=== PATIENT | female | born 1945 | race Caucasian/White ===

== ENCOUNTER → 2019-02-16 15:46 | Outpatient (CLI) | payer MEDICARE, OTHER, SELFPAY ==
--- NOTE | 2019-02-16 15:52 | CT_ITS ---
STUDY: CT ABDOMEN AND PELVIS WITHOUT CONTRAST REASON FOR EXAM: Female, 73 years old. Lower back pain. Left flank pain. History of prior lumbar surgery, appendectomy hysterectomy and cholecystectomy. RADIATION DOSAGE (If Supplied By Facility): CTDIvol = ( 19.14 ) mGy, DLP = ( 937.05 ) mGycm TECHNIQUE: Transaxial images were obtained from the dome of the diaphragm to the symphysis pubis without oral contrast, and without intravenous contrast. Sagittal and coronal images were reconstructed. Individualized dose optimization techniques were used for this CT. COMPARISON: None. FINDINGS: The visualized lung bases are unremarkable. The visualized portions of the heart are within normal limits. The liver is normal in size, contour and density. There is a vague hypodensity in segment 3 of the liver measuring 4 x 5 x 4 cm thought represent cysts. The liver is otherwise unremarkable. There are surgical clips in the gallbladder fossa consistent with a prior cholecystectomy. Normal spleen. Normal pancreas. Normal bilateral adrenal glands. Normal right kidney. Normal left kidney. Normal visualized stomach. Normal small intestine. Normal colon. There is non-visualization of the appendix. There are minimal atherosclerotic changes in the aorta without aneurysm. Normal inferior vena cava. Normal retroperitoneum. Normal urinary bladder. There is posthysterectomy. Normal vaginal cuff. Surgical clips along the left pelvic sidewall. No lymphadenopathy. No free air or free fluid is seen within the peritoneal cavity. Umbilical hernia of omental fat. Abdominal wall is otherwise unremarkable. There are diffuse degenerative changes of the visualized lumbar spine. There is surgical fusion at L4-[address]/Abdomen/Pelvis without Cont IMPRESSION: 1. No evidence of renal, ureteral or urinary bladder abnormality. 2. Small hepatic cysts. 3. No evidence of acute intra-abdominal process. 4. Surgical changes of the lumbar spine. Electronically Signed: Shashi Whipple DO at 16:28 EDT Tel [phone], Service support ,
== END ==
PROVIDERS: Family Provider Preventive Medicine Occupational Medicine; PCP Preventive Medicine Occupational Medicine; Referring Provider Nurse Practitioner Adult Health; Visit Provider Nurse Practitioner Adult Health
DX: N39.0 Urinary tract infection, site not specified (principal); B96.4 Proteus (mirabilis) (morganii) as the cause of diseases classified elsewhere; R10.9 Unspecified abdominal pain; M54.9 Dorsalgia, unspecified; R30.0 Dysuria
CPT/HCPCS: 74176; 87086; 87088

== ENCOUNTER → 2019-02-16 16:25 | Outpatient (CLI) | payer MEDICARE, OTHER, SELFPAY | PROVIDERS: Family Provider Preventive Medicine Occupational Medicine; PCP Preventive Medicine Occupational Medicine; Referring Provider Nurse Practitioner Adult Health; Visit Provider Nurse Practitioner Adult Health | DX: R30.0 Dysuria (principal) | CPT/HCPCS: 87086 ==

== ENCOUNTER → 2019-03-02 16:54 | Outpatient (CLI) | payer MEDICARE, OTHER, SELFPAY ==
[2016-08-21 10:25] VITALS: BMI 38.2
== END ==
PROVIDERS: Family Provider Preventive Medicine Occupational Medicine; PCP Preventive Medicine Occupational Medicine; Referring Provider Urology; Visit Provider Urology
DX: R30.0 Dysuria (principal)
CPT/HCPCS: 87086; 87088

== ENCOUNTER 2019-07-05 11:00 | Outpatient (RCR) | payer MEDICARE, OTHER, SELFPAY ==
--- NOTE | 2019-06-08 14:48 | HP.PTEVAL_ITS ---
Patient's Visit Information DANIELLE LUJAN is a 73 year old F referred to Physical Therapy by Ric Harris MD with a diagnosis of PRESENCE OF LEFT ARTIFICIAL KNEE JOINT. Date of Evaluation: 06/08/19 Physical Therapist: Vu Chauhan PT, Cert MDT, OCS - Visit Plan Frequency: 2x /Week Duration: 4 Weeks Plan: PATIENT HAD TKA 2 YEARS AGO. PT INTERVENTIONS WITH AQUATIC PT FOR ROM /STRENGTHENING RIGHT KNEE,ENDURANCE PROGRAM - Subjective Findings: This 73 y/o female presents to physical therapy with left TKA. Patient had TKA done 2 years ago . Patient stated pain continues anterior inferior knee to tibial crest . Aggraveting with walking and standing. Affects ability to perform ADL's and housework tasks . Patient denies parathesia/tingling. Patient pain described achy pain. Patient pain affects sleeping. Seen DR Moore x-rays looked good wanted to try PT in the water. Patient is unabl to squat/knee and does one step at time. [place] 4 steps . Patient ambulates with cane. Patient knee pain affects QOL and ADL'S and light housework tasks.Patient has anxiety and back pain prio surgery. SOCIAL: ,spouse in [place]. VOCATION: retired - Pain Left Pain Intensity (Out of 10): 1 Pain Intensity Range: 10 Comment: TIGHTNESS - Objective POSTURE: mild foward posture. NEURO: intact. GAIT: ambulates with antalgic gait with straight cane reciprocal pattern with decrease stance time RLE. BALANCE: good -. STAIRS: one step at time with cane /rail. EDEMA: absent. MMT: quad 4-/5,hams 4-/5 ,hip flexion 4-/5 ,hip abd 4-/5,ankle. AROM: 5-130 supine degrees flexion. FLEXABLITY: hams 4/5 - Goals Goal 1:: Patient to be Independant with Aquatic program Goal Time Frame: 4-6 Weeks Goal 2:: Pateint to decrease knee pain by 50% or> to improve function ADL'S Goal Time Frame: 4-6 Weeks Goal 3:: Patient will ambulate community distances to with improve gait 80% of the time. Goal Time Frame: 4-6 Weeks Goal 4:: Patient increase strength quads/hams to 4/5 to improve frunction with gait Goal Time Frame: 4-6 Weeks Goal 5:: Patient to improve LFES score by 5 points or > to improve QOL. Goal Time Frame: 4-6 Weeks - Rehabilitation Potential Physical Therapy Diagnosis: This patient underwent s/p TKA 2 years ago but conts to have pain with generalized weakness inpairs walking and standing thus benifit from skilled PT Rehabilitation Potential: Good - Anticipated Interventions Patient/Client Instruction: Educate patient on: Condition, Plan of Care For the Purpose of:: To decrease pain, To increase ROM, To improve muscle performance and motor function, To improve ability to perform ADL's, To increase tolerance to activity/condition/position, To improve ability of physical actions for home/community/work/leisure, To improve health of tissue, To decrease soft tissue restriction, To increase flexibility/ROM, To improve ability to perform tasks related to life management Therapeutic Exercise to Include: Strength training, Endurance training, Flexibilty training, In an aquatic setting, Passive ROM, Active ROM Comment: KNEE QUDS/HAMS/HIP For the Purpose of:: To decrease pain, To increase ROM, To increase oxygenation perfusion, To improve ability to perform ADL's, To increase tolerance to activity/condition/position, To improve ability of physical actions for home/community/work/leisure, To improve health of tissue, To decrease soft tissue restriction Thank you for the opportunity to evaluate your patient. For Medicare and Medicare HMO plans, please review the plan of care and approve it. It will need to be FAXED BACK to us at [phone] for Medicare purposes. For Medicare only, by signing this I certify the plan of care. Please let me know if there are questions or concerns regarding this plan of care. Physician Sig nature: Date:
--- NOTE | 2019-07-05 11:24 | HP.PTDCSUM ---
HP - PT D/C Summary It has been my pleasure to treat DANIELLE LUJAN under orders from Ric Harris MD, for the diagnosis of PRESENCE OF LEFT ARTIFICIAL KNEE JOINT for a total of 7 visit(s). Discharge Date: Please see the following information for a summary of their discharge status. - Subjective Subjective: Patient has gastritis problems . Pain is about same . Patient conts to use cane extended distances. - Pain Left Pain Intensity (Out of 10): 5 Lumbar Spine Pain Intensity (Out of 10): 8 - Overall Improvement % Improvement: 25 - Objective Objective/Function: POSTURE: WFL. GAIT: reciprocal patttern with cane mild antalgic gait. MMT: QUADS/HAMS 4/5. AROM: 0-125 SUPINE KNEE FLEXION. STAIRS: alteranting with rail/cane - Goals Goal 1:: Patient to be Independant with Aquatic program Goal Progress: Goal Met Goal 2:: Pateint to decrease knee pain by 50% or> to improve function ADL'S Goal Progress: Progressing Goal 3:: Patient will ambulate community distances to with improve gait 80% of the time. Goal Progress: Progressing Goal 4:: Patient increase strength quads/hams to 4/5 to improve frunction with gait Goal 5:: Patient to improve LFES score by 5 points or > to improve QOL. Goal Progress: Progressing - Plan Plan: D/C - D/C Information If there are questions or concerns regarding this patient's physical therapy, please feel free to call me at [phone]. Thank you for the referral of this patient. Sincerely, Vu Chauhan, PT, Cert MDT, OCS
== END 2019-07-05 19:00 | disposition home or self-care (01) ==
LOC: PT 11:00
PROVIDERS: Family Provider Preventive Medicine Occupational Medicine; PCP Preventive Medicine Occupational Medicine; Referring Provider Specialist; Visit Provider Specialist
DX: Z96.652 Presence of left artificial knee joint (principal)
CPT/HCPCS: 97110; 97113; 97162